=== PATIENT | female | born 1970 | race Two or more races ===

== ENCOUNTER 2019-11-28 14:47 | Emergency (ER) | payer SELFPAY ==
[~2019-11-28] VITALS: Ht 167.6 cm; Wt 122.5 kg
[2019-11-28 15:38] LABS: Basophils # (auto) 0 10 ^3/uL (0-0.2); Basophils % (auto) 0.4 % (0.0-2.0); Eosinophils # (auto) 0 10 ^3/uL (0-0.8); Hematocrit 44.2 % (36.0-46.0); Hemoglobin 14.7 g/dL (12.2-16.2); Lymphocytes # (auto) 2.5 10 ^3/uL (0.4-5.4); Lymphocytes % (auto) 35.1 % (10.0-50.0); Mean Corpuscular Hemoglobin 28.1 pg (28.0-32.0); Mean Corpuscular Hgb Conc. 33.3 g/dL (32.0-36.0); Mean Corpuscular Volume 84.3 fL (80.0-100.0); Monocytes # (auto) 0.6 10 ^3/uL (0-1.3); Monocytes % (auto) 8.2 % (0.0-12.0); Neutrophils # (auto) 4.1 10 ^3/uL (1.6-8.6); Neutrophils % (auto) 56.3 % (37.0-80.0); Platelet Count (auto) 280 10^3/uL (140-450); Red Blood Cells 5.25 10^6/uL (4.0-5.20); Red Cell Distribution Width 17.6 % (11.8-14.3); White Blood Cell 7.2 10^3/uL (4.4-10.8)
[2019-11-28 15:52] LABS: Albumin 3.9 g/dL (3.4-5.0); Anion Gap 7 (5-15); Blood Urea Nitrogen 19 mg/dL (7-18); Calcium 8.8 mg/dL (8.5-10.1); Carbon Dioxide 26 mmol/L (21-32); Chloride 105 mmol/L (98-107); Glucose 112 mg/dL (74-106); Potassium 4.1 mmol/L (3.5-5.1); Sodium 138 mmol/L (136-145)
[2019-11-28 15:58] LABS: Alanine Aminotransferase 26 U/L (13-56); Alkaline Phosphatase 108 U/L (45-117); Aspartate Aminotransferase 23 U/L (15-37); BUN/Creatinine Ratio 21.8; Bilirubin, Total 0.6 mg/dL (0.2-1.0); GFR African American 89 mL/min; GFR Non-African American 73 mL/min
[2019-11-28 17:30] VITALS: BP 150/98
== END 2019-11-28 17:57 | disposition home or self-care (01) ==
LOC: ER 14:47
DX: R07.89 Other chest pain (principal); K29.70 Gastritis, unspecified, without bleeding; J98.01 Acute bronchospasm; F41.9 Anxiety disorder, unspecified; R94.6 Abnormal results of thyroid function studies; R03.0 Elevated blood-pressure reading, without diagnosis of hypertension; Z90.49 Acquired absence of other specified parts of digestive tract
CPT/HCPCS: 36415; 71046; 80053; 84443; 84484; 85025; 85379; 93005

== ENCOUNTER 2020-10-10 10:29 | Emergency (ER) | payer MEDICAID ==
[~2020-10-10] VITALS: Ht 167.6 cm; Wt 119.3 kg
[2020-10-10] MEDS ORDERED: SODIUM CHLORIDE 0.9% 1,000 ML IV ONE ×2 (11:00)
[2020-10-10 11:40] LABS: Basophils # (auto) 0 10 ^3/uL (0-0.2); Basophils % (auto) 0.2 % (0.0-2.0); Eosinophils # (auto) 0 10 ^3/uL (0-0.8); Hematocrit 45.2 % (36.0-46.0); Hemoglobin 15.4 g/dL (12.2-16.2); Mean Corpuscular Hemoglobin 30.6 pg (28.0-32.0); Mean Corpuscular Hgb Conc. 34.1 g/dL (32.0-36.0); Mean Corpuscular Volume 89.8 fL (80.0-100.0); Monocytes # (auto) 0.7 10 ^3/uL (0-1.3); Monocytes % (auto) 5.3 % (0.0-12.0); Neutrophils # (auto) 9.9 10 ^3/uL (1.6-8.6); Neutrophils % (auto) 78.5 % (37.0-80.0); Nucleated Red Blood Cells % 0.1 %; Platelet Count (auto) 297 10^3/uL (140-450); Red Blood Cells 5.04 10^6/uL (4.0-5.20); Red Cell Distribution Width 14.9 % (11.8-14.3); White Blood Cell 12.6 10^3/uL (4.4-10.8)
[2020-10-10 12:05] LABS: Anion Gap 7 (5-15); Blood Urea Nitrogen 10 mg/dL (7-18); Calcium 8.9 mg/dL (8.5-10.1); Carbon Dioxide 25 mmol/L (21-32); Chloride 108 mmol/L (98-107); Glucose 116 mg/dL (74-106); Potassium 3.7 mmol/L (3.5-5.1); Sodium 140 mmol/L (136-145)
[2020-10-10 12:12] LABS: Alanine Aminotransferase 31 U/L (13-56); Alkaline Phosphatase 101 U/L (45-117); Aspartate Aminotransferase 26 U/L (15-37); BUN/Creatinine Ratio 14.1; Bilirubin, Total 0.7 mg/dL (0.2-1.0); GFR African American 112 mL/min; GFR Non-African American 92 mL/min
[2020-10-10] MEDS ORDERED: KETOROLAC TROMETH 30 MG/ML 1ML VIAL IV ONE (15:15)
[2020-10-10] MEDS ORDERED: ONDANSETRON HCL 4 MG/2 ML VIAL IV ONE (15:15)
[2020-10-10 15:23] LABS: Urine Bacteria FEW /hpf (None Seen); Urine Blood Negative /uL (Negative); Urine Mucus FEW (None Seen); Urine Specific Gravity 1.011 (1.001-1.035); Urine WBC 2 /hpf (0 - 5)
[2020-10-10 15:46] VITALS: BP 137/98
== END 2020-10-10 18:05 | disposition home or self-care (01) ==
LOC: ER 10:29
DX: D72.829 Elevated white blood cell count, unspecified (principal); E86.0 Dehydration; K21.9 Gastro-esophageal reflux disease without esophagitis; Z90.49 Acquired absence of other specified parts of digestive tract
CPT/HCPCS: 36415; 71046; 74176; 80053; 81001; 84484; 85025; 93005; 96361; 96374; 96375; 99285; J1885; J2405; J7030

== ENCOUNTER 2025-02-08 08:45 | Inpatient (IN) | payer MEDICAID, SELFPAY ==
[~2025-02-08] VITALS: Ht 167.6 cm; Wt 114.7 kg
--- NOTE | 2025-02-08 08:55 | ECG ---
[facility] Test Date: 2025-02-08 Test Time: 08:50:48 Pat Name: PONCE HUDSON Department: ER Room: Gender: F Process Consultant: KVNG : 1970 Requested By: APOLINAR BLOOM Order Number: [id number] Reading MD: Mahesh Anderson Measurements Intervals [place] Rate: 96 P: 37 MD: 152 QRS: -30 QRSD: 98 T: -6 QT: 366 QTc: 463 Interpretive Statements Sinus rhythm Left axis deviation Probable anterior infarct, age indeterminate Electronically Signed On 02-08-2025 9:30:24 PDT by Mahesh Anderson Please click the below link to view image of tracing.
--- NOTE | 2025-02-08 09:08 | ED.PDOC ---
HPI Comments This is a 54 year old female presenting to the ED with chief complaint of chest pain. Patient reports that she woke up this morning with jaw pain that radiated down to her neck and chest with associated nausea, dizziness, and tunnel vision. Patient relays that she managed to go back to sleep and when waking up again, she continued to have chest pain, coming to the ED for further evaluation. Patient denies any SOB, fever, chills, abdominal pain, vomiting, cough, or headache. Chief Complaint: Chest Wall Injury Time Seen by MD: 09:06 Primary Care Provider: KENYATTA Weems Notes: Nurses Notes, Medications, Allergies Allergies: Coded Allergies: NO KNOWN ALLERGIES (Unverified , 11/28/19) Information Source: Patient Mode of Arrival: Ambulatory Severity: Moderate Timing: Hours Duration: Since onset Prehospital treatment: None Location: Substernal Radiation: Neck, Jaw Quality: Sharp Onset: At Rest Cardiac Risk Factors: None PE Risk Factors: None History of: None Past Medical History PAST MEDICAL HISTORY: Anxiety, Depression, GERD, Thyroid Surgical History: Cholecystectomy, Hernia Repair, Tubal Ligation STREET CLEANER History: No Pertinent STREET CLEANER History, Other Family History Family History: Reviewed,noncontributory to illness, Unknown Social History Smoker: Non-Smoker Alcohol: Occasionally Drugs: Denies Drug Use Lives In: Home Constitutional: denies: chills, diaphoresis, fatigue, fever, malaise, sweats, weakness, others EENTM: denies: blurred vision, double vision, ear bleeding, ear discharge, ear drainage, ear pain, ear ringing, eye pain, eye redness, hearing loss, mouth pain, mouth swelling, nasal discharge, nose bleeding, nose congestion, nose pain, photophobia, tearing, throat pain, throat swelling, voice changes, others Respiratory: denies: cough, hemoptysis, orthopnea, SOB at rest, shortness of breath, SOB with excertion, stridor, wheezing, others Cardiovascular: reports: chest pain; denies: dizzy spells, diaphoresis, Dyspnea on exertion, edema, irregular heart beat, left arm pain, lightheadedness, palpitations, PND, syncope, others Gastrointestinal: reports: nausea; denies: abdomen distended, abdominal pain, blood streaked bowels, constipated, diarrhea, dysphagia, difficulty swallowing, hematemesis, melena, poor appetite, poor fluid intake, rectal bleeding, rectal pain, vomiting, others Genitourinary: denies: abnormal vagina bleeding, burning, dyspareunia, dysuria, flank pain, frequency, hematuria, incontinence, pain, , vagina discharge, urgency, others Neurological: reports: dizziness; denies: fainting, headache, left sided numbness, left sided weakness, numbness, paresthesia, pre-existing deficit, right sided numbness, right sided weakness, seizure, speech problems, tingling, tremors, weakness, others Musculoskeletal: reports: neck pain, others (Jaw pain); denies: back pain, gout, joint pain, joint swelling, muscle pain, muscle stiffness Integumetry: denies: bruises, change in color, change in hair/nails, dryness, laceration, lesions, lumps, rash, wounds, others Allergic/Immunocompromised: denies: Difficulty Healing, Frequent Infections, Hives, Itching, others Hematologic/Lymphatic: denies: anemia, blood clots, easy bleeding, easy bruising, swollen glands, others Endocrine: denies: excessive hunger, excessive sweating, excessive thirst, excessive urination, flushing, intolerance to cold, intolerance to heat, unexplained weight gain, unexplained weight loss, others Psychiatric: denies: anxiety, bipolar disorder, depression, hopeless, panic disorder, schizophrenia, sleepless, suicidal, others All Other Systems: Reviewed and Negative Physical Exam General Appearance: Moderate Distress, Normal HEENT: Normal ENT Inspection, Pharynx Normal, TMs Normal Neck: Full Range of Motion, Non-Tender, Normal, Normal Inspection Respiratory: Chest Non-Tender, Lungs Clear, No Accessory Muscle Use, No Respiratory Distress, Normal Breath Sounds Cardiovascular: No Edema, No JVD, No Murmur, No Gallop, Normal Peripheral Pulses, Regular Rate/Rhythm Breast Exam: Deferred Gastrointestinal: No Organomegaly, Non Tender, No Pulsatile Mass, Normal Bowel Sounds, Soft Genitalia: Deferred Pelvic: Deferred Rectal: Deferred Extremities: No calf tenderness, Normal capillary refill, Normal inspection, Normal range of motion, Non-tender, No pedal edema Musculoskeletal : Apperance: Normal Neurologic: Alert, commercial photographer II-XII nml as Tested, No Motor Deficits, Normal Affect, Normal Mood, No Sensory Deficits Cerebellar Function: Normal Reflexes: Normal Skin: Dry, Normal Color, Warm Lymphatic: No Adenopathy Was a procedure done? Was a procedure done?: No CP Differential Dx Differential Diagnosis: MAT, MO Differential Diagnosis: CHF Differential Diagnosis: Chest Wall Pain, Gastritis, Myocardial Infarction, Pericarditis X-Ray, Labs, Meds, VS Vital Signs Date Time Temp Pulse Resp B/P (MAP) Pulse Ox O2 Delivery O2 Flow Rate FiO2 02/08/25 09:50 73 02/08/25 09:43 88 18 99 Room Air* 0 21 02/08/25 09:43 98.6 88 18 165/96 (119) 99 98.6 02/08/25 08:59 98.9 96 20 159/93 (115) 98 98.9 02/08/25 08:50 96 Lab Test 02/08/25 10:14 02/08/25 09:03 Range/Units Troponin I High Sensitivity Pending < 3 L </=34 ng/L White Blood Count 6.2 4.4-10.8 10^3/uL Red Blood Count 5.41 H 4.0-5.20 10^6/uL Hemoglobin 17.7 H 12.2-16.2 g/dL Hematocrit 51.5 H 36.0-46.0 % Mean Corpuscular Volume 95.1 80.0-100.0 fL Mean Corpuscular Hemoglobin 32.8 H 28.0-32.0 pg Mean Corpuscular Hemoglobin Concent 34.5 32.0-36.0 g/dL Red Cell Distribution Width 14.4 H 11.8-14.3 % Platelet Count 258 140-450 10^3/uL Mean Platelet Volume 9.3 6.9-10.8 fL Neutrophils (%) (Auto) 58.2 37.0-80.0 % Lymphocytes (%) (Auto) 31.6 10.0-50.0 % Monocytes (%) (Auto) 9.7 0.0-12.0 % Eosinophils (%) (Auto) 0.0 0.0-7.0 % Basophils (%) (Auto) 0.5 0.0-2.0 % Neutrophils # (Auto) 3.6 1.6-8.6 10 ^3/uL Lymphocytes # (Auto) 2.0 0.4-5.4 10 ^3/uL Monocytes # (Auto) 0.6 0-1.3 10 ^3/uL Eosinophils # (Auto) 0 0-0.8 10 ^3/uL Basophils # (Auto) 0 0-0.2 10 ^3/uL Nucleated Red Blood Cells 0.0 % Sodium Level 142 136-145 mmol/L Potassium Level 3.7 3.5-5.1 mmol/L Chloride Level 105 98-107 mmol/L Carbon Dioxide Level 26 20-31 mmol/L Anion Gap 11 5-15 Blood Urea Nitrogen 11 9-23 mg/dL Creatinine 0.82 0.550-1.02 mg/dL Glomerular Filtration Rate Calc 84 >90 mL/min BUN/Creatinine Ratio 13.4 10.0-20.0 Serum Glucose 107 H 74-106 mg/dL Calcium Level 10.3 8.7-10.4 mg/dL Chest XR: [place] [address] Ph: [phone] DIAGNOSTIC IMAGING Diagnostic Imaging Report : [id number] Signed PATIENT: PONCE HUDSON ACCT: [id number] UNIT: [id number] : 1970 LOC: ER ROOM / BED: / AGE / SEX: 54 / F ADM STATUS: REG ER SERVICE 0853 ORDERING PHYSICIAN: APOLINAR BLOOM MD PROCEDURE(s): CXRP - CHEST PORTABLE REASON: chest pain ORDER NUMBER(s): [id number], ACCESSION NUMBER(s): [id number] EXAM: XY CHEST PORTABLE HISTORY: chest pain COMPARISON: Chest x-ray dated 10/10/2020 TECHNIQUE: PA upright view of the chest was performed. FINDINGS: No pneumothorax, consolidative infiltrates, or pulmonary edema. The heart is not enlarged. There is mild thoracolumbar levoscoliosis. IMPRESSION: No acute intrathoracic process. ATED BY: MAXWELL MORALES MD DICTATED DATE/TIME: 02/08/25926 SIGNED BY: MAXWELL MORALES MD SIGNED DATE/TIME: 02/08/25926 CC: Images Reviewed?: Images reviewed and evaluated by me Time of 1ST Reevaluation: 10:05 Reevaluation 1ST: Unchanged Patient Education/Counseling: Diagnosis, Treatment Family Education/Counseling: No Family Present Additional Information Previous visits reviewed: 10/10/20 for abdominal pain The following tests were ordered, and results were reviewed by me: CBC, BMP, Troponin, EKG, Chest XR Additional Information was gathered from interviewing the following independent historians: None I reviewed and agreed with the following test results read by other providers: Chest XR I discussed treatment and results with medical personnel and: patient Comprehensive systems review obtained and negative except for what is stated in the HPI. Departure 1 Departure Time of Disposition: 11:07 (Patient presented with chest pain that was concerning for possible STEMI, ACS, PE, Pneumonia, Muscle Strain, COPD, Dissection. Data: 1. I ordered and reviewed the result of at least 3 labs including a CBC, BMP, and Troponin. 2. I independently interpreted the following tests: EKG which shows sinus arrhythmia and Chest X-ray which shows benign chest.Risk:This patient has a high risk of morbidity due to further diagnostic testing or treatment and may suffer from an acute cardiac or respiratory disorder. Workup reveals concern for ACS and patient should be admitted for further workup and possible expert consultation. ) Impression: Primary Impression: Acute chest pain Additional Impression: Shortness of breath Disposition: 09 ADMITTED INPATIENT Admit to: Med Surg Condition: Serious Critical Care Note Critical Care Time?: Yes Critical care comment: Acute chest pain Authorized and Performed by: Apolinar Bloom MD Total critical care time: Approximately 39 minutes Due to a high probability of clinically significant, life threatening deterioration, the patient required my highest level of preparedness to intervene emergently and I personally spent this critical care time directly and personally managing the patient. This critical care time included obtaining a history; examining the patient; pulse oximetry; ordering and review of studies; arranging urgent treatment with development of a management plan; evaluation of patient's response to treatment; frequent reassessment; and, discussions with other providers. This critical care time was performed to assess and manage the high probability of imminent, life-threatening deterioration that could result in multi-organ failure. It was exclusive of separately billable procedures and treating other patients and teaching time. Please see my other sections and the rest of the note for further information on patient assessment and treatment. Stability Stability form required: No Heart Score Heart Score: Heart Score Response (Comments) Value History Moderate Suspicious 1 EKG Normal 0 Age 45-64 1 Risk Factors 1 or 2 risk factors 1 Troponin Normal limit 0 Total 3 I personally scribed for APOLINAR BLOOM MD ([email or web address]) on 02/08/25 at 09:08. Electronically submitted by Stanislaw Raman ([email or web address]). I personally scribed for APOLINAR BLOOM MD ([email or web address]) on 02/08/25 at 09:43. Electronically submitted by Stanislaw Raman ([email or web address]). APOLINAR BLOOM MD Feb 08, 2025 09:08
[2025-02-08 09:26] LABS: Basophils # (auto) 0 10 ^3/uL (0-0.2); Eosinophils # (auto) 0 10 ^3/uL (0-0.8); Mean Corpuscular Hemoglobin 32.8 pg (28.0-32.0)
[2025-02-08 09:28] LABS: Basophils % (auto) 0.5 % (0.0-2.0); Hematocrit 51.5 % (36.0-46.0); Hemoglobin 17.7 g/dL (12.2-16.2); Lymphocytes % (auto) 31.6 % (10.0-50.0); Mean Corpuscular Hgb Conc. 34.5 g/dL (32.0-36.0); Mean Corpuscular Volume 95.1 fL (80.0-100.0); Monocytes # (auto) 0.6 10 ^3/uL (0-1.3); Monocytes % (auto) 9.7 % (0.0-12.0); Neutrophils # (auto) 3.6 10 ^3/uL (1.6-8.6); Neutrophils % (auto) 58.2 % (37.0-80.0); Platelet Count (auto) 258 10^3/uL (140-450); Red Blood Cells 5.41 10^6/uL (4.0-5.20); Red Cell Distribution Width 14.4 % (11.8-14.3); White Blood Cell 6.2 10^3/uL (4.4-10.8)
--- NOTE | 2025-02-08 09:30 | DVH ---
EXAM: XY CHEST PORTABLE HISTORY: chest pain COMPARISON: Chest x-ray dated 10/10/2020 TECHNIQUE: PA upright view of the chest was performed. FINDINGS: No pneumothorax, consolidative infiltrates, or pulmonary edema. The heart is not enlarged. There is m ild thoracolumbar levoscoliosis. IMPRESSION: No acute intrathoracic process.
[2025-02-08 09:38] LABS: Chloride 105 mmol/L (98-107); Potassium 3.7 mmol/L (3.5-5.1); Sodium 142 mmol/L (136-145)
[2025-02-08 09:39] LABS: Anion Gap 11 (5-15); Calcium 10.3 mg/dL (8.7-10.4); Carbon Dioxide 26 mmol/L (20-31)
[2025-02-08 09:43] VITALS: PULSE 88; RESP 18; O2SAT 99
[2025-02-08 09:44] LABS: BUN/Creatinine Ratio 13.4 (10.0-20.0); Blood Urea Nitrogen 11 mg/dL (9-23)
[2025-02-08 09:46] LABS: Glucose 107 mg/dL (74-106)
[2025-02-08] MEDS: MAALOX PLUS or MAALOX 30 ML PO SCH (14:48)
[2025-02-08 15:49] VITALS: BP 138/89; PULSE 61; RESP 18; TEMP 97.7; O2SAT 96
[2025-02-08] MEDS ORDERED: TIRZ10IN2 SC (16:06)
[2025-02-08] MEDS ORDERED: FLUO-125 PO (16:06)
[2025-02-08] MEDS ORDERED: LEVO112T4 PO (16:06)
--- NOTE | 2025-02-08 16:57 | DVHHP2 ---
History of Present Illness Reason for Visit: chest pain History of Present Illness 74-year-old female presenting to the ED with chest pain. She reports waking up with jaw pain radiating to her neck and chest, associated with nausea, dizziness, and tunnel vision. She attempted to go back to sleep but continued experiencing chest pain upon waking again. She denies shortness of breath, fever, chills, abdominal pain, vomiting, cough, or headache. Pain was r eproducible on palpation. Past Medical History: Anxiety, Depression, GERD, Hypothyroidism Surgical History: Cholecystectomy, Thyroidectomy, Tubal ligation Review of Systems Review of Systems Negative for SOB, fever, chills, abdominal pain, vomiting, or cough. Detailed ROS documented in chart. Allergies: Coded Allergies: NO KNOWN ALLERGIES (Unverified , 11/28/19) Medications Current Medications Medications Dose Ordered Sig/Chichi Route Start Time Stop Time Status Last Admin Dose Admin Enoxaparin Sodium 40 mg DAILY SC 02/09/25 10:00 Al Hydrox/Mg Hydrox/Simethicone 15 ml DAILY PO 02/08/25 14:30 02/08/25 14:48 15 ML Pantoprazole Sodium 40 mg DAILY IV 02/09/25 10:00 Losartan Potassium 25 mg DAILY PO 02/09/25 10:00 Ibuprofen 400 mg Q8HP PRN PO 02/08/25 14:30 Exam Vital Signs Vital Signs Date Time Temp Pulse Resp B/P (MAP) Pulse Ox O2 Delivery O2 Flow Rate FiO2 02/08/25 15:49 97.7 61 18 138/89 (105) 96 97.7 02/08/25 09:43 Room Air* 0 21 General Appearance: Alert HEENT: Atraumatic Respiratory: Clear to auscultation, Normal air movement Cardiovascular: Regular rate, Normal S1, Other (Pain reproducible on palpation) Extremities: No clubbing, No cyanosis, No edema Skin: No rashes, No breakdown Neuro: Normal gait, Normal speech Psych/Mental Status: Mental status NL, Mood NL Labs/Xrays Labs Test 02/08/25 10:14 02/08/25 09:03 Range/Units Troponin I High Sensitivity < 3 L </=34 ng/L White Blood Count 6.2 4.4-10.8 10^3/uL Red Blood Count 5.41 H 4.0-5.20 10^6/uL Hemoglobin 17.7 H 12.2-16.2 g/dL Hematocrit 51.5 H 36.0-46.0 % Mean Corpuscular Volume 95.1 80.0-100.0 fL Mean Corpuscular Hemoglobin 32.8 H 28.0-32.0 pg Mean Corpuscular Hemoglobin Concent 34.5 32.0-36.0 g/dL Red Cell Distribution Width 14.4 H 11.8-14.3 % Platelet Count 258 140-450 10^3/uL Mean Platelet Volume 9.3 6.9-10.8 fL Neutrophils (%) (Auto) 58.2 37.0-80.0 % Lymphocytes (%) (Auto) 31.6 10.0-50.0 % Monocytes (%) (Auto) 9.7 0.0-12.0 % Eosinophils (%) (Auto) 0.0 0.0-7.0 % Basophils (%) (Auto) 0.5 0.0-2.0 % Neutrophils # (Auto) 3.6 1.6-8.6 10 ^3/uL Lymphocytes # (Auto) 2.0 0.4-5.4 10 ^3/uL Monocytes # (Auto) 0.6 0-1.3 10 ^3/uL Eosinophils # (Auto) 0 0-0.8 10 ^3/uL Basophils # (Auto) 0 0-0.2 10 ^3/uL Nucleated Red Blood Cells 0.0 % Sodium Level 142 136-145 mmol/L Potassium Level 3.7 3.5-5.1 mmol/L Chloride Level 105 98-107 mmol/L Carbon Dioxide Level 26 20-31 mmol/L Anion Gap 11 5-15 Blood Urea Nitrogen 11 9-23 mg/dL Creatinine 0.82 0.550-1.02 mg/dL Glomerular Filtration Rate Calc 84 >90 mL/min BUN/Creatinine Ratio 13.4 10.0-20.0 Serum Glucose 107 H 74-106 mg/dL Calcium Level 10.3 8.7-10.4 mg/dL Assessment/Plan Assessment/Plan #chest pain, rule out ACS #GERD #Anxiety #Hypothyroidism Admit EKG: left axis deviation, no ST changes Troponins negative Med/Surg Maloox Protonix Ibuprofen PRN Losartan 25 mg Case discussed with Dr Ian Boyer discussed with: Patient, Other My Orders Orders - ALMAZ CARLSON RESIDENT Procedure Category Date Status Time Admit ADMIT 02/08/25 Transmitted 14:30 Code Status CODE 02/08/25 Transmitted 14:30 Vital Signs DONAVAN 02/08/25 In Process 14:30 Review Orders With DONAVAN 02/08/25 In Process Adm.Md 14:30 Consistent DIET 02/08/25 Transmitted Carb(Ccho)Diabetes Dinner Notify Md Of Changes DONAVAN 02/08/25 In Process From Base 14:30 Advance Directive DONAVAN 02/08/25 In Process 14:30 Patient Condition ORDERS 02/08/25 Transmitted 14:30 Allergies DONAVAN 02/08/25 In Process 14:30 Enoxaparin Sodium PHA 02/09/25 In Process (Lovenox) 10:00 Alum & Mag PHA 02/08/25 In Process Hydrox-Simethicone 14:30 Pantoprazole PHA 02/09/25 In Process (Protonix) 10:00 Losartan Tablet PHA 02/09/25 In Process (Cozaar Tablet) 10:00 Echo 2d Mode Cardiac US 02/08/25 Logged DOP 14:30 Ibuprofen Tablet PHA 02/08/25 In Process (Motrin Tablet) 14:30 Date of Service: Feb 08, 2025 Billing Provider: MARINA KERR MD Common Visit Codes: 90567-TVWEFAP INP/OBS CARE (HIGH) Secondary Visit Codes: 19304-FDVNFJEA CARE PLAN 30 MINUTES ALMAZ CARLSON RESIDENT Feb 08, 2025 16:57
[2025-02-08 17:00] VITALS: BP 118/84; PULSE 67; RESP 16; TEMP 97.9; O2SAT 98
[2025-02-08 18:49] VITALS: O2SAT 96
[2025-02-08 20:00] VITALS: O2SAT 98
[2025-02-08 21:00] VITALS: BP 137/70; PULSE 65; RESP 18; TEMP 98.4; O2SAT 99
[2025-02-08] MEDS: IBUPROFEN 400 MG TAB PO PRN (21:25)
[2025-02-09 01:00] VITALS: BP 128/73; PULSE 85; RESP 18; TEMP 98.4; O2SAT 93
[2025-02-09 05:00] VITALS: BP 125/71; PULSE 78; RESP 19; TEMP 97.8; O2SAT 96
[2025-02-09 08:15] VITALS: O2SAT 96
[2025-02-09 09:00] VITALS: BP 129/87; PULSE 65; RESP 16; TEMP 96.9; O2SAT 97
[2025-02-09] MEDS: PANTOPRAZOLE 40 MG/10 ML VIAL INJ IV SCH (10:19)
[2025-02-09] MEDS: LOSARTAN POTASSIUM 25 MG TAB PO SCH (10:20)
[2025-02-09] MEDS: ENOXAPARIN SOD 40 MG/0.4 ML SYRINGE SC SCH (10:21)
--- NOTE | 2025-02-09 11:47 | DVHDSRES ---
Discharge Summary Date of Admission Resident Creating Document: ALMAZ CARLSON RESIDENT Feb 08, 2025 at 14:30 Date of Discharge: Feb 09, 2025 Admitting Diagnosis #chest pain, ruled out ACS, likely muskoskeletal vs GERD Labs/Diagnostic Data: Laboratory Results Test 02/08/25 10:14 02/08/25 09:03 Troponin I High Sensitivity < 3 ng/L (</=34) Thyroid Stimulating Hormone (TSH) 3.28 uIU/mL (0.55-4.78) White Blood Count 6.2 10^3/uL (4.4-10.8) Red Blood Count 5.41 10^6/uL (4.0-5.20) Hemoglobin 17.7 g/dL (12.2-16.2) Hematocrit 51.5 % (36.0-46.0) Mean Corpuscular Volume 95.1 fL (80.0-100.0) Mean Corpuscular Hemoglobin 32.8 pg (28.0-32.0) Mean Corpuscular Hemoglobin Concent 34.5 g/dL (32.0-36.0) Red Cell Distribution Width 14.4 % (11.8-14.3) Platelet Count 258 10^3/uL (140-450) Mean Platelet Volume 9.3 fL (6.9-10.8) Neutrophils (%) (Auto) 58.2 % (37.0-80.0) Lymphocytes (%) (Auto) 31.6 % (10.0-50.0) Monocytes (%) (Auto) 9.7 % (0.0-12.0) Eosinophils (%) (Auto) 0.0 % (0.0-7.0) Basophils (%) (Auto) 0.5 % (0.0-2.0) Neutrophils # (Auto) 3.6 10 ^3/uL (1.6-8.6) Lymphocytes # (Auto) 2.0 10 ^3/uL (0.4-5.4) Monocytes # (Auto) 0.6 10 ^3/uL (0-1.3) Eosinophils # (Auto) 0 10 ^3/uL (0-0.8) Basophils # (Auto) 0 10 ^3/uL (0-0.2) Nucleated Red Blood Cells 0.0 % Sodium Level 142 mmol/L (136-145) Potassium Level 3.7 mmol/L (3.5-5.1) Chloride Level 105 mmol/L (98-107) Carbon Dioxide Level 26 mmol/L (20-31) Anion Gap 11 (5-15) Blood Urea Nitrogen 11 mg/dL (9-23) Creatinine 0.82 mg/dL (0.550-1.02) Glomerular Filtration Rate Calc 84 mL/min (>90) BUN/Creatinine Ratio 13.4 (10.0-20.0) Serum Glucose 107 mg/dL (74-106) Hemoglobin A1c 4.8 % A1C (<5.7) Calcium Level 10.3 mg/dL (8.7-10.4) Other Laboratory Tests 02/08/25 09:03 Brief Hx & Hospital Course: A 64-year-old female with a past medical history of anxiety, depression, GERD, hypothyroidism, and prior cholecystectomy, thyroidectomy, and tubal ligation, presented with chest pain radiating to the neck and jaw, associated with nausea, dizziness, and tunnel vision. Pain was reproducible on palpation. Initial evaluation ruled out acute coronary syndrome: serial troponins were negative, and EKG showed left axis deviation without ST changes. TTE revealed concentric LVH, mild aortic root and left atrial enlargement, EF 60%, no significant valvular abnormalities or pericardial effusion. Symptoms were thought to be musculoskeletal versus GERD-related. She remained hemodynamically stable and pain improved with supportive care including Maalox, protonix, ibuprofen PRN, and continuation of home losartan. She was monitored on the floor without complications. Discharge Condition: Stable, tolerating PO, pain resolved General Appearance: Alert HEENT: Atraumatic Respiratory: Clear to auscultation, Normal air movement Cardiovascular: Regular rate, Normal S1, Other (Pain reproducible on palpation) Extremities: No clubbing, No cyanosis, No edema Skin: No rashes, No breakdown Neuro: Normal gait, Normal speech Psych/Mental Status: Mental status NL, Mood NL Case discussed with Dr Sosa Operations or Procedures EXAM: Two-dimensional and M-mode echocardiogram with Doppler and color Doppler. Blood Pressure: 125/71 mmHg INDICATION chest pain RISK FACTORS Obesity: Height: 5'6, Weight: 252 DIMENSIONS LVDd 4.5 (3.8-5.7cm) LA (2D) 3.7 (1.9-4.0cm) Aortic Root 3.5 (2.0- 3.7cm) LVDs 3.2 (2.5-4.0cm) LA (MM) (1.9-4.0cm) Aortic Cusp Exc 1.7 (1.5- 2.0cm) EF (%) 55.0 (55-70%) Rt. Atrium 4.4 (1.9-4.0cm) Asc. Aorta 3.2 cm IVSd 1.2 (0.7-1.1cm) RV (D) 4.3 (1.8-2.4cm) PWd 0.5 (0.7-1.1cm) Mitral Valve Mitral Mitral Stenosis E wave 0.65m/s MV Mean GR. mmHg A wave 0.63m/s MV Peak GR. 29mmHg E/A ratio 1.0 2D MVA cm2 DECEL Time 295ms PRESS 1/2 Time ms Aortic Valve Aortic Valve Aortic Stenosis V1 0.92m/s AO Mean GR. 3mmHg V2 1.08m/s AO Peak GR. 5mmHg LVOT Diameter 2.4 (1.8-2.4cm) Doppler MADELINE 3.85cm2 Pulmonic Valve V2 0.79m/s Tricuspid Valve TR Velocity 1.72m/s RVSP 15mmHg Conclusion Sinus rhythm. Concentric LVH. Mild aortic root and left atrial enlargement. Right atrial enlargement noted. Valves are normal. EF of 60% with normal RV function. No significant mitral aortic or tricuspid regurgitation. No pulmonic insufficiency. No pericardial effusion masses or vegetations discernible. Condition at Discharge: Stable Final Diagnosis/Problems List #chest pain, ruled out ACS, likely muskoskeletal vs GERD #GERD #Anxiety #Hypothyroidism Discharge Disposition: Home Discharge Statement: "Patient was advised to return to the ER or call 911 if any headaches, dizziness, shortness of breath, chest pain, abdominal pain, bleeding, fevers, or worsening of medical condition. Patient was counseled about treatment plan, medications, possible side effects, patientverbalized understanding. All questions were answered to the best of my ability. This discharge took greater then 30 minutes in planning, reviewing documentation, counseling the patient, and discussing with other team members." ASSESSMENT ASSESSMENT Assessment ALMAZ CARLSON RESIDENT Feb 09, 2025 11:47
[2025-02-09 11:53] LABS: Urine Bacteria None Seen /hpf (None Seen)
[2025-02-09 12:04] LABS: Urine Blood Negative /uL (Negative); Urine Clarity Clear (Clear); Urine Protein, UAD Negative (Negative); Urine Specific Gravity 1.005 (1.001-1.035); Urine Squamous Epithelial Cell FEW /hpf (<5); Urine Urobilinogen Normal (Negative); Urine WBC 6 /HPF (0-5); Urine pH 6.5 (5.0-9.0)
[2025-02-09 12:06] LABS: Urine Color Light-Yellow (Yellow)
[2025-02-09 13:00] VITALS: BP 144/82; PULSE 66; RESP 16; TEMP 98; O2SAT 96
[2025-02-09] MEDS ORDERED: CALC600C PO (13:03)
[2025-02-09] MEDS ORDERED: PANT40TA2 PO (13:03)
[2025-02-09 13:37] VITALS: BP 128/85; TEMP 36.7
--- NOTE | 2025-02-10 13:47 | DVHSR ---
APPROVED REPORT EXAM: Two-dimensional and M-mode echocardiogram with Doppler and color Doppler. Blood Pressure: 125/71 mmHg INDICATION chest pain RISK FACTORS Obesity: Height: 5'6, Weight: 252 DIMENSIONS LVDd4.5 (3.8-5.7cm)LA (2D)3.7 (1.9-4.0cm)Aortic Root3.5 (2.0-3.7cm) LVDs3.2 (2.5-4.0cm)LA (MM) (1.9-4.0cm)Aortic Cusp Exc1.7 (1.5-2.0cm) EF (%) 55.0 (55-70%)Rt. Atrium4.4 (1.9-4.0cm)Asc. Aorta3.2 cm IVSd1.2 (0.7-1.1cm)RV (D)4.3 (1.8-2.4cm) PWd0.5 (0.7-1.1cm) Mitral Valve MitralMitral Stenosis E wave0.65m/sMV Mean GR.mmHg A wave0.63m/sMV Peak GR.29mmHg E/A ratio1.02D MVAcm2 DECEL [id number] 1/2 [place] Aortic Valve Aortic ValveAortic Stenosis V10.92m/Zoe Mean GR.3mmHg V21.08m/Zoe Peak GR.5mmHg LVOT Diameter2.4 (1.8-2.4cm)Doppler AVA3.85cm2 Pulmonic Valve V20.79m/s Tricuspid Valve TR Velocity1.72m/s [id number] Conclusion Sinus rhythm. Concentric LVH. Mild aortic root and left atrial enlargement. Right atrial enlargement noted. Valves are normal. EF of 60% with normal RV function. No significant mitral aortic or tricuspid regurgitation. No pulmonic insufficiency. No pericardial effusion masses or vegetations discernible.
--- NOTE | 2025-02-11 14:37 | ECG ---
[facility] Test Date: 2025-02-08 Test Time: 09:50:50 Pat Name: PONCE HUDSON Department: ER Room: 0298 Gender: F Extracorporeal Technician: LUIS : 1970 Requested By: APOLINAR BLOOM Order Number: [id number] Reading MD: Measurements Intervals [place] Rate: 73 P: 56 NE: 150 QRS: -22 QRSD: 101 T: 32 QT: 397 QTc: 438 Interpretive Statements Sinus rhythm Borderline left axis deviation Low voltage, precordial leads Abnormal R-wave progression, early transition Borderline T abnormalities, anterior leads Please click the below link to view image of tracing.
--- NOTE | 2025-02-11 14:37 | ECG ---
[facility] Test Date: 2025-02-08 Test Time: 11:36:23 Pat Name: PONCE HUDSON Department: ER Room: 0298 Gender: F Mice Raiser: LUIS : 1970 Requested By: APOLINAR BLOOM Order Number: [id number] Reading MD: Measurements Intervals [place] Rate: 68 P: 60 CA: 147 QRS: -16 QRSD: 108 T: 19 QT: 428 QTc: 456 Interpretive Statements Sinus rhythm Atrial premature complex Borderline left axis deviation Low voltage, precordial leads Abnormal R-wave progression, early transition Borderline T abnormalities, anterior leads Please click the below link to view image of tracing.
== END 2025-02-09 16:30 | disposition home or self-care (01) | DRG 392 ==
LOC: ER 08:45 → OVERFLOW 14:30 → WEST WING 18:16
PROVIDERS: ATTEND Emergency Medicine
DX: K21.9 Gastro-esophageal reflux disease without esophagitis (principal); F41.9 Anxiety disorder, unspecified; E03.9 Hypothyroidism, unspecified; M54.2 Cervicalgia; F32.A Depression, unspecified; Z90.49 Acquired absence of other specified parts of digestive tract; Z98.51 Tubal ligation status
CPT/HCPCS: 36415; 71045; 80048; 81001; 83036; 84443; 84484; 85025; 93005; 93306; 99291; G0378; J2470